=== PATIENT | female | born 2000 | race Caucasian/White ===

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

== ENCOUNTER 2018-09-12 09:06 | Emergency (ER) | payer MEDICAID ==
[~2018-09-12] VITALS: Ht 160 cm; Wt 77.6 kg
[2018-09-12 09:18] VITALS: Ht 160 cm; Wt 77.6 kg
[2018-09-12 11:14] VITALS: BP 126/76
== END 2018-09-12 11:13 | disposition home or self-care (01) ==
LOC: ED 09:06
DX: J06.9 Acute upper respiratory infection, unspecified (principal); H66.92 Otitis media, unspecified, left ear; J45.909 Unspecified asthma, uncomplicated; Z88.8 Allergy status to other drugs, medicaments and biological substances; Z88.6 Allergy status to analgesic agent
CPT/HCPCS: 87804; Q0092

== ENCOUNTER 2018-10-22 08:46 | Emergency (ER) | payer MEDICAID ==
[~2018-10-22] VITALS: Ht 160 cm; Wt 80.7 kg
[2018-10-22 08:50] VITALS: Ht 160 cm; Wt 80.7 kg
[2018-10-22 09:34] VITALS: BP 127/62
== END 2018-10-22 09:35 | disposition home or self-care (01) ==
LOC: ED 08:46
DX: J06.9 Acute upper respiratory infection, unspecified (principal); J45.909 Unspecified asthma, uncomplicated; Z88.6 Allergy status to analgesic agent; Z88.5 Allergy status to narcotic agent; Z88.8 Allergy status to other drugs, medicaments and biological substances

== ENCOUNTER 2018-11-29 21:52 | Emergency (ER) | payer MEDICAID ==
[~2018-11-29] VITALS: Ht 160 cm; Wt 80.3 kg
[2018-11-29 22:09] VITALS: Ht 160 cm; Wt 80.3 kg
[2018-11-30 00:38] VITALS: BP 161/78
== END 2018-11-30 00:38 | disposition home or self-care (01) ==
LOC: ED 21:52
DX: M25.562 Pain in left knee (principal); J45.909 Unspecified asthma, uncomplicated; Z88.6 Allergy status to analgesic agent; Z88.1 Allergy status to other antibiotic agents; Z88.8 Allergy status to other drugs, medicaments and biological substances; Z88.5 Allergy status to narcotic agent; Z98.890 Other specified postprocedural states

== ENCOUNTER 2019-02-03 20:20 | Emergency (ER) | payer MEDICAID ==
[~2019-02-03] VITALS: Ht 160 cm; Wt 80.3 kg
[2019-02-03 20:59] VITALS: Ht 160 cm; Wt 80.3 kg
[2019-02-04 00:45] VITALS: BP 130/77
== END 2019-02-04 00:45 | disposition home or self-care (01) ==
LOC: ED 20:20
DX: B37.0 Candidal stomatitis (principal); J45.909 Unspecified asthma, uncomplicated; Z88.6 Allergy status to analgesic agent; Z88.8 Allergy status to other drugs, medicaments and biological substances

== ENCOUNTER 2019-02-16 22:52 | Emergency (ER) | payer MEDICAID ==
[~2019-02-16] VITALS: Ht 160 cm; Wt 80.7 kg
[2019-02-16 22:56] VITALS: Ht 160 cm; Wt 80.7 kg
[2019-02-17 00:35] VITALS: BP 127/77
== END 2019-02-17 00:35 | disposition home or self-care (01) ==
LOC: ED 22:52
DX: J45.909 Unspecified asthma, uncomplicated (principal); Z88.5 Allergy status to narcotic agent; Z88.2 Allergy status to sulfonamides

== ENCOUNTER 2019-02-19 11:34 | Emergency (ER) | payer MEDICAID ==
[~2019-02-19] VITALS: Ht 160 cm; Wt 79.4 kg
[2019-02-19 11:40] VITALS: Ht 160 cm; Wt 79.4 kg
[2019-02-19 13:10] VITALS: BP 115/59
== END 2019-02-19 13:10 | disposition home or self-care (01) ==
LOC: ED 11:34
DX: R05 Cough (principal); J02.9 Acute pharyngitis, unspecified; R50.9 Fever, unspecified; Z88.5 Allergy status to narcotic agent; Z88.1 Allergy status to other antibiotic agents; Z98.890 Other specified postprocedural states